=== PATIENT | female | born 1985 | race Caucasian/White ===

== ENCOUNTER 2017-05-29 10:32 | Day surgery (SDC) | payer OTHER ==
[2017-05-29] VITALS (11 sets, daily range): BP systolic 104–128; BP diastolic 56–75; PULSE 58–94; RESP 12–15; O2SAT 94–99
[~2017-05-29] VITALS: Ht 170.2 cm; Wt 85.4 kg
--- NOTE | 2017-05-29 07:35 | PCM.HPANE ---
Patient Data Surgeon Admitting Provider: Attending Provider:Trinity St MD Primary Care Physician:Maricarmen Portillo DO Other Provider:Carin [place]isingham Anesthesia Reason for Visit Missed Ab Ht/WT & BMI Height (Feet): 5 Height (Inches): 7 Weight (Kilograms): 86.18 Body Mass Index 29.00 Allergies Coded Allergies: guaifenesin (Verified Allergy, Severe, anaphylaxis, 05/28/17) albuterol (Verified Allergy, Unknown, rash, 05/28/17) Past Anesthesia History Anesthesia History: Denies:: Abnormal Airway, Anesthesia Reactions, Difficult Intubation, Fam Anesthesia Reaction, Fam Malignant Hypertherm, Malignant Hyperthermia Diabetes History Hx Diabetes?: No MRSA MRSA: No Medications Hypertension Medication: No Home Meds Incl Beta Evie: No Reported Medications Vits #93/Iron Fum/FA ( Formula Tablet)1 Each Tablet1 Each PO DAILY 05/28/17 Magnesium 200 Mg [id number] Mg PO DAILY 05/28/17 Docosahexanoic Acid/Epa (Fish Oil Concentrate Softgel)1 Each Capsule1 Each PO DAILY 05/28/17 Calcium Carbonate (Calcium)600 Mg Tablet1,200 Mg PO DAILY 05/28/17 History History of ENT Problems?: No HEENT History: Denies:: Abnormal Airway Cataracts Difficult Intubation Dysphagia Glaucoma Hearing Problem Sinus Problem TMJ Denture Type: None Teeth Condition: Within Normal Limits Hx of Heart Problems?: No Cardiovascular History: Denies:: AICD Abdominal Aortic Aneurism Atrial Fibrillation Heart Murmur Hypertension Irregular Heartbeat Pacemaker Peripheral Vascular Rheumatic Fever Hx of Respiratory Problem?: No Respiratory History: Denies:: Asthma COPD Emphysema Oxygen Administration Pneumonia Tuberculosis Use of C-PAP Machine Use of Inhalers / NEBS Hx Neurologic Problems?: Yes Neurological History: Positive for:: Headaches (rarely) Denies:: Alzheimer's Disease CVA Multiple Sclerosis Parkinson's Disease Seizures TIA Hx of GI Problems?: Yes Hx of Problems?: No Genitourinary History: Denies:: Kidney Stones Urinary Tract Infection Female Hx: Denies:: Currently (missed ab current admission problem) Problems with Breasts? Skin History: Denies:: History Skin Disorders? Pressure Ulcers Hx Musculoskeletal Problems?: Yes Musculoskeletal History: Positive for:: Musculoskeletal Trauma (prior hx of left shoulder surgery) Denies:: Back Injury Fibromyalgia Myasthenia Gravis Osteoarthritis Rheumatoid Arthritis Systemic Lupus Hx of Psycho/Social Problems?: No Psycho Social History: Denies:: Anxiety Hx Depression Hx Surgeries?: Yes (left shoulder, D+C) Hx Any Other Health Problems?: Yes Other History: Denies:: Cancer Thyroid Disease History Blood Transfusions: Positive for:: Accept Blood Products? Denies:: Blood Transfusions Hx Diabetes: No Hx Alcohol Use: NoHx Substance Use: NoHave You Smoked inLast 12 mo: No Stop/Bang Treated for Sleep Apnea?: No Do You Have a CPAP Machine?: No P-Blood Pressure: treated: No B- Body Mass Index > 35 kg/m2: No A- Age over 50: No N- Neck Large Circumference: No G- Gender Male: No VIVIAN Risk Assessment: Low Risk, <3 Yes Risk Assessment Category Category 1A: Patient has history of documented sleep apnea, and HAS NOT received any narcotic, sedative or anesthesia administration during this stay. Category 1B: Patient has history of documented sleep apnea, and HAS received any narcotic , sedative or anesthesia administration during this stay Category 2: Patient has SUSPECTED Obstructive Sleep Apnea, and HAS received any narcotic , sedative or anesthesia administration during this stay. Category 3: Patient has SUSPECTED Obstructive Sleep Apnea and HAS NOT received narcotic, sedative or anesthesia administration during this stay. Category 4: Outpatient in Procedural Areas with known sleep apnea or who screen positive for High Risk via the STOP/BANG questionnaire. Exam Exam General Appearance: Alert, Oriented X3, Cooperative, No Acute Distress HEENT/AIRWAY: MP 2 Lungs: Clear to Auscultation, Normal Air Movement Heart: Exam Unremarkable, Regular Rate/Rhythm, No Murmurs/Rubs/Gallops Plan Impression Patient chart reviewed, patient interviewed and anesthestic plan with risks, benefits, and alternatives discussed, and informed consent obtained. ASA Physical Status: ASA2 Mod Systemic Disease Anesthetic Plan: GA Bene/Risks/Altern/Consents: Yes HP Complete Prior to Induction: Yes Ankit Medina MD May 29, 2017 07:35
[~2017-05-29 10:32] MED LIST: CALC600T12 PO; DOCO1CAP3 PO; Dexamethasone 4 mg/mL Inj IVPUSH PRN; EPHEDrine Sulfate 50 mg/mL Inj IVPUSH PRN; HYDROmorphone 1 mg/mL Inj IVPUSH PRN; Lactated Ringer's 500 ML IV PRN; MAGN200T PO; MetoCLOpramide 5 mg/mL 2 mL Inj IVPUSH PRN; Ondansetron 2 mg/mL 2 mL Inj IVPUSH PRN; PREN-105 PO; Phenylephrine 10,000 mCg/mL Inj IVPUSH PRN; fentaNYL-PF 50 mCg/mL 2 mL Inj IVPUSH PRN
[2017-05-29] MEDS ORDERED: Dexamethasone 4 mg/mL Inj ONE (10:33)
[2017-05-29] MEDS ORDERED: Propofol 10,000 mCg/mL 20 mL Inj ONE (10:33)
[2017-05-29] MEDS ORDERED: Ondansetron 2 mg/mL 2 mL Inj ONE (10:33)
[2017-05-29] MEDS ORDERED: Ketamine 10 mg/mL 20 mL Inj ONE (10:33)
[2017-05-29] MEDS ORDERED: fentaNYL-PF 50 mCg/mL 2 mL Inj ONE (10:33)
[2017-05-29] MEDS: Lactated Ringer's 1,000 ML IV SCH ×2 (11:01→12:11)
[2017-05-29] MEDS ORDERED: DOXYCYCLINE IV ONE (12:40)
[2017-05-29] MEDS ORDERED: DEXTROSE 5% IV ONE (12:40)
[2017-05-29] MEDS ORDERED: Ondansetron 2 mg/mL 2 mL Inj IVPUSH PRN (12:50)
[2017-05-29] MEDS ORDERED: diphenhydrAMINE 25 mg Capsule PO PRN (12:50)
[2017-05-29] MEDS ORDERED: MetoCLOpramide 5 mg/mL 2 mL Inj IVPUSH PRN (12:50)
[2017-05-29] MEDS ORDERED: HYDROmorphone 1 mg/mL Inj IVPUSH PRN (12:50)
--- NOTE | 2017-05-29 12:57 | PCM.DIGYN ---
Surgical Discharge Instruction Dates of Hospitalization Date of Hospital Admission 05/29/2017 Providers Admitting Physician: Primary Care Physician: Maricarmen Portillo DO Attending Physician: Trinity St MD Diagnosis at Time of Discharge Diagnosis at time of discharge Missed Suction D&C Problems: Diet Discharge Diet: No restrictions Activity Discharge Activity-General: Try not to overdue, Activity as pain allows Dressing and Incisional Care Hygiene: May shower, NO bathtub, hot tub or whirlpool Additional Instructions Discharge Instructions Please follow up with [facility] in 2 weeks. You will have spotting and cramping for the next few weeks, but if your bleeding worsens, or you develop any increased pain, fevers, chills, or nausea and vomiting, please call the Women's Health clinic immediately. You can resume activity as tolerated. Follow Up Plan Follow-up Provider (F9): Trinity St MD Follow-up appointment: Weeks (2) Call your provider for: Fever, Chills, Shortness of breath, Vomitting, Heavy vaginal bleeding, Increasing pain Darren Monterroso DO May 29, 2017 12:57
--- NOTE | 2017-05-29 12:59 | PCM.SURGOP ---
Surgical Operative Report Date of Service: May 29, 2017 Pre Operative Diagnosis Missed Post Operative Diagnosis Missed Procedure: Suction Dilation and Curettage Surgeon and Trader: Surgeon: Trinity St MD Assistants: None Indication for Procedure 31 y/o with a 6 weeks size missed who desired surgical treatment. Findings: Moderate amounts of products of conception. Procedure Details The patient was taken to the operating room where her general anesthesia was obtained without difficulty. She was prepared and draped in normal sterile fashion. Appropriate surgical time out was performed. A bivalve speculum was inserted into the patient's vagina and the cervix was identified and grasped with a single-tooth tenaculum. The cervix was dilated using Hegar cervical dilators up to a 9 [place]. A 9 mm curved suction curette was then inserted and the suction device was activated and endometrial curetting was performed. The suction device was then removed. Good hemostasis was assured. Instrument and sponge counts were correct 2 and the patient was awakened and taken to recovery room awake and in good condition. Complications There were no periprocedural complications identified. Surgical Specimen Removed: Yes Specimen sent to Pathology: Yes Surgical Specimen description: Products of conception Anesthetic Plan: GA Grafts, Implants: None Output, Estimated Blood Loss: 200 Blood Administration during carmona: No Catheters: None Post Operative Plan Discharge home when awake and stable Trinity St MD May 29, 2017 12:59
--- NOTE | 2017-05-29 13:52 | PCM.ANEP1 ---
Post Anesthesia PACU Phase 1 Assessment Vital Signs Vital Signs Date Time Temp Pulse Resp B/P Pulse Ox O2 Delivery O2 Flow Rate FiO2 05/29/17 13:45 36.2 62 13 104/60 96 Room Air 05/29/17 13:40 64 14 111/65 94 Room Air 05/29/17 13:30 36.6 71 15 110/67 97 Room Air 05/29/17 13:15 74 13 115/74 97 Room Air 05/29/17 13:10 76 13 116/74 97 Room Air 05/29/17 13:05 91 14 128/75 99 Simple Mask 8 05/29/17 13:00 85 14 121/66 99 Simple Mask 8 05/29/17 12:55 36.1 94 15 108/58 99 Simple Mask 8 05/29/17 10:52 36.4 66 12 106/73 96 Room Air Anesthetic Administered: GA Level of Alertness: Awake, talking FERNANDEZ's with Equal Strength: Yes Pain: No Nausea or Vomiting: No CV Function & Hydration Stable: Yes Airway Device: Oralpharangeal Airway Oxygen Delivery: Nasal Cannula Lungs: Clear to Auscultation, Normal Air Movement Dermatome Level: Full Sensation PACU Phase 2 Assessment Complications: No Follow up Care: No Patient Instructions Provided: N/A Ankit Medina MD May 29, 2017 13:52
--- NOTE | 2017-06-02 13:30 | PATH ---
SURGICAL PATHOLOGY Attending Physician:Trinity St, CASE STATUS: Signed Out PATIENT NAME: JESU CLARK PID: [id number] : 1985 DATE COLLECTED:05/29/2017 21:41 SPECIMEN: Products of conception CLINICAL HISTORY: MISSED 1). PRODUCTS OF CONCEPTION FINAL DIAGNOSIS: Products of Conception, Dilatation and Curettage: Chorionic villi consistent with products of conception. ICD10: 020 GROSS DESCRIPTION: The specimen is received in one formalin filled container labeled with the patient's name, sublabeled "products of conception" and consists of multiple portions of tissue and blood which aggregate to 5.5 x 5.0 x 1.0 CM. No grossly recognizable parts are observed. Rep. sections are submitted in 2 cassettes. 05/29/2017IN ICD-9 CODES: CPT CODES: 1: 34092 Electronically Signed Out Andres Bailey MD [facility] [address], [place] [address] Technical component performed at [facility], [address] [place] [address] Ave[address], [place], [address]
== END 2017-05-29 23:59 | disposition home or self-care (01) ==
LOC: SAS 10:32
PROVIDERS: ATTEND Obstetrics & Gynecology
PROC: 10D17ZZ Extraction of Products of Conception, Retained, Via Natural or Artificial Opening (ICD-10-PCS; principal; 2017-05-29 12:15)
DX: O02.1 Missed abortion (principal); Z3A.01 Less than 8 weeks gestation of pregnancy
CPT/HCPCS: 59820; J1100; J1885; J2175; J2405; J3010; J7120